=== PATIENT | male | born 1950 | race Caucasian/White ===

== ENCOUNTER 2016-09-06 13:46 | Emergency (ER) | payer OTHER ==
[~2016-09-06] VITALS: Ht 180.3 cm; Wt 72.0 kg
[~2016-09-06 13:46] MED LIST: AMLO-147 PO; CARV25TA79 PO; CEFT1PIG2 IVPB; DOCU-159 PO; ERGO500014 PO; LOSA100T7 PO; MAGN400T28 PO; PANT40TA3 PO; SENN-8 PO; SERT25TA83 PO
--- NOTE | 2016-09-06 14:18 | ERD ---
ER Documentation Chief Complaint Date/Time DATE: 09/06/16 TIME: 14:16 Chief Complaint HPI Patient is a 65-year-old gentleman who is brought here today for a PICC line placement. He says he is getting IV antibiotics as an outpatient. He denies any complaints. He says that he does not know how the PICC line he has came out. He denies any fever, chest pain, shortness of breath, abdominal pain, vomiting, diarrhea. He says he has been in his usual state of health otherwise. The remainder of the systems are negative. ROS All systems reviewed and are negative except as per history of present illness. Medications Home Meds Reported Medications Zinc Sulfate* (Zinc Sulfate*) 220 Mg Tablet, 220 MG PO DAILY, TAB 09/06/16 Acetaminophen* (Acetaminophen*) 650 Mg Tablet, 650 MG PO Q6H Y for PAIN AND OR ELEVATED TEMP, #30 TAB 09/06/16 Calcium Carbonate/Vitamin D3 ([place] 500+D Tablet) 1 Each Tablet, 1 EACH PO BID, TAB 09/06/16 Amino Acids/Protein Hydrolys (Pro-Stat Profile Liquid) 30 Ml Liquid, 30 ML PO BID SUGAR FREE 09/06/16 Omeprazole* (Omeprazole*) 40 Mg Capsule.dr, 40 MG PO DAILY, #30 CAP 09/06/16 Hydrocodone/Acetaminophen ([place] 5-325 Tablet) 1 Each Tablet, 1 EACH PO Q6 Y for MODERATE PAIN LEVEL 4-6, TAB 09/06/16 Meropenem (MEROPENEM) 500 Mg Vial, 500 MG IV Q12, VIAL FOR 8 WEEKS STARTED ON 08-15-16 09/06/16 Melatonin (Melatin) 3 Mg Tablet, 3 MG PO QHS, TAB 09/06/16 Insulin Detemir (Levemir Flextouch) 100 Unit/1 Ml Insuln.pen, 10 UNIT SQ AC BREAKFAST 09/06/16 Lactobacillus Acidophilus* (Lactinex*) 1 Tab Chew, 1 TAB PO DAILY, TAB 09/06/16 Hydralazine Hcl* (Hydralazine Hcl*) 10 Mg Tablet, 10 MG PO Q6 Y for ELEVATED BLOOD PRESSURE, #120 TAB 09/06/16 Guaifenesin/Dextromethorphan ([place]-Tussin Dm Syrup) 473 Ml Syrup, 10 ML PO Q6 Y for COUGH 09/06/16 Ferrous Sulfate* (Ferrous Sulfate*) 325 Mg Tabec, 325 MG PO DAILY, TAB 09/06/16 Losartan Potassium* (Losartan Potassium*) 50 Mg Tablet, 50 MG PO DAILY, TAB 09/06/16 Amlodipine Besylate* (Amlodipine Besylate*) 10 Mg Tablet, 10 MG PO DAILY, #30 TAB 09/14/15 Sertraline Hcl* (Sertraline Hcl*) 25 Mg Tablet, 25 MG PO DAILY, #30 TAB 09/14/15 Magnesium Oxide* (Magnesium Oxide*) 400 Mg Tablet, 400 MG PO DAILY, TAB 09/14/15 Docusate Sodium* (Docusate Sodium*) 100 Mg Capsule, 100 MG PO BID, #60 CAP 09/14/15 Carvedilol* (Carvedilol*) 25 Mg Tablet, 25 MG PO BID, #60 TAB 09/14/15 Ergocalciferol* (Drisdol* (Vitamin D2)) 50,000 Unit Capsule, 77962 UNIT PO Q7D, CAP 09/14/15 Discontinued Reported Medications Losartan Potassium* (Losartan Potassium*) 100 Mg Tablet, 100 MG PO DAILY, TAB 09/14/15 Pantoprazole* (Protonix*) 40 Mg Tablet.dr, 40 MG PO BID, TAB 09/14/15 Sennosides/Docusate Sodium* (Senna-S*) 1 Tab Tablet, 1 TAB PO DAILY, TAB 09/14/15 Discontinued Scripts Ceftriaxone Sod* (Rocephin* 1GM/50ML (PMX)) 1 Gm/50 Ml Iv.soln., 1 GM IVPB Q24H for 7 Days, EA Prov:DARIANA CAMPA MD 09/15/15 Allergies Allergies: Coded Allergies: No Known Allergy (Unverified , 09/06/16) PMhx/Soc History of Surgery: Yes (tonsillectomy 30yrs ago, sacral debridement) Anesthesia Reaction: No Hx Neurological Disorder: No Hx Respiratory Disorders: No Hx Cardiac Disorders: Yes (HTN) Hx Psychiatric Problems: No Hx Miscellaneous Medical Probl: No Hx Alcohol Use: Yes (occasional) Hx Substance Use: No Hx Tobacco Use: No FmHx Family History: coronary disease Physical Exam Vitals Vital Signs Date Time Temp Pulse Resp B/P Pulse Ox O2 Delivery O2 Flow Rate FiO2 09/06/16 14:21 69 18 160/72 09/06/16 14:20 98.6 68 18 160/72 98 Physical Exam Const: [] Well-developed well-nourished male sitting on the bed no acute distress Head: Atraumatic normocephalic Eyes: Normal Conjunctiva ENT: Normal External Ears, Nose and Mouth. Neck: Full range of motion..~ No meningismus. Resp: Clear to auscultation bilaterally Cardio: Regular rate and rhythm, no murmurs Abd: Soft, non tender, non distended. Normal bowel sounds Skin: No petechiae or rashes, prior PICC line was in his left upper extremity and is obviously out, there is no evidence for infection Ext: No cyanosis, or edema Neur: Awake and alert oriented 3 Psych: Normal Mood and Affect Procedures/MDM Medical decision making: Patient presents for replacement of his PICC line. I have ordered this. 1644: The nurse informed me that she had been trying to get a hold of the PICC line nurse for the last 2 hours. She states she finally got a hold of the PICC line nurse but apparently the PICC line nurse had already gone home for the day. The patient states he is not going to stay here for an IV. He wants to go home. Patient is competent to make this decision. Unfortunately we do not have anyone concentrator operator to come back and do the PICC line. I am unsure why the order was not done prior to the PICC nurse leaving. Departure Diagnosis: Primary Impression: Needs peripherally inserted central catheter (PICC) Condition: Stable Additional Instructions: [facility] call the radiologist tomorrow to see when the PICC line nurse might be here in order to have the PICC line placed tomorrow or they may schedule it as an outpatient on Thursday. STEFANIE ROMERO Sep 06, 2016 14:18
[2016-09-06 14:20] VITALS: Ht 180.3 cm; Wt 72.0 kg
[2016-09-06] MEDS ORDERED: LOSA50TA6 PO (14:48)
[2016-09-06] MEDS ORDERED: FER325 PO (14:49)
[2016-09-06] MEDS ORDERED: [UNRECOGNIZED DRUG - CODE] PO (14:50)
[2016-09-06] MEDS ORDERED: HYDR-3670 PO (14:51)
[2016-09-06] MEDS ORDERED: INSU100I27 SQ (14:53)
[2016-09-06] MEDS ORDERED: LACTINEX PO (14:53)
[2016-09-06] MEDS ORDERED: MELA3TAB51 PO (14:54)
[2016-09-06] MEDS ORDERED: MERO500V2 IV (14:56)
[2016-09-06] MEDS ORDERED: HYDR-906 PO (14:57)
[2016-09-06] MEDS ORDERED: OMEP40CA6 PO (14:57)
[2016-09-06] MEDS ORDERED: AMIN30LI3 PO (14:59)
[2016-09-06] MEDS ORDERED: CALC1TAB79 PO (15:00)
[2016-09-06] MEDS ORDERED: ZINC220T PO (15:01)
[2016-09-06] MEDS ORDERED: ACET-2047 PO (15:01)
[2016-09-06 16:00] VITALS: BP 149/70; PULSE 70; RESP 18
== END 2016-09-06 17:30 | disposition short-term general hospital (02) ==
LOC: E/R 13:46
DX: Z45.2 Encounter for adjustment and management of vascular access device (principal); I10 Essential (primary) hypertension; E11.9 Type 2 diabetes mellitus without complications; Z79.4 Long term (current) use of insulin; Z79.84 Long term (current) use of oral hypoglycemic drugs
CPT/HCPCS: 99283